=== PATIENT | female | born 1950 | race African-American/Black ===

== ENCOUNTER → 2021-01-15 | Outpatient (CLI) | payer OTHER ==
[~2021-01-15] VITALS: Ht 157.5 cm; Wt 66.2 kg
[~2021-01-15] MED LIST: AMLODIPINE BESY10 MG PO; BYSTOLIC10 MG PO; CEFPODOXIME PR200 M1 PO; CLONAZEPAM 0.50.5 M1 PO; GLUCOPHAGE XR750 MG PO; LEVAQUIN 500 M500 M2 PO; LEXAPRO20 MG PO; LOSARTAN-HCTZ1 EAC3 PO; MOBIC15 MG PO; NORCO 5-325 TA1 EACH PO; NORVASC5 MG PO; PERCOCET 5-3251 EACH PO; PERCOCET PO; POTASSIUM20 PO; PREDNISONE 10 M10 MG PO; PROTONIX40 M1 PO; TRIBENZOR 40-11 EAC1 PO; WELLBUTRIN XL300 MG PO
--- NOTE | 2021-01-15 14:16 | CARDNUC ---
[place] [address] CARDIAC NUCLEAR IMAGING REPORT Name: MARIE DUKES Room: [facility]#: [id number] Admission: 01/15/21 Attend Phys: Scottie Mcmullen, Discharge: Date of : 54 Date of Service: 01/15/21 1416 Report #: [id number] THIS REPORT FOR: cc: Andrei Figueroa Russell J. DO Park,Jorge Luis Fuchs MD ~ APPROVED REPORT Study performed: 01/15/2021 12:08:21 Exam: Nuclear Stress Test Indication: Abnormal EKG, Syncope Patient Location: Out-Patient Stress Tech: danny mittal Stress Nurse: Savannah Pickard RN NM Tech:MARKO Wilde Ht: 5 ft 2 in Wt: 146 lbs BSA: 1.67 m2 BMI: 26.70 Medical History Medical History: CKD, COPD, Diabetes, HTN, Hyperlipidemia Medications: asa-81, atorvastatin, carvedilol , nifedipine, olmesartan Allergies: No known drug allergies Cardiac Risk Factors: DM, Age, HTN, Hyperlipidemia Exercise History: Physically active Meds Held (24 hrs): carvedilol Stress Test Details Stress Test: Exercise stress converted to pharmacologic stress due to failure to obtain a diagnostic stress test. Reason for pharmacologic stress test: changed from exercise stress test due to inability to reach target heart rate. HR Resting HR: 86 bpm Max Heart Rate (APMHR): 152 bpm Max HR Achieved: 103 bpm Target HR (85% APMHR): 129 bpm % of APMHR: 67 Recovery HR: 98 bpm BP Resting BP: 149/67 [place] [address] CARDIAC NUCLEAR IMAGING REPORT Name: ROSELINEMARIE ARTHUR Room: [facility]#: [id number] Admission: 01/15/21 Attend Phys: Scottie Mcmullen, Discharge: Date of : 54 Date of Service: 01/15/21 1416 Report #: [id number] Max BP: 163/64 mmHg ECG Resting ECG: Sinus Rhythm Stress ECG: Sinus Rhythm ST Change: Non-ischemic Clinical Reason for Termination: Completed protocol NM EXAM: Myocardial Perfusion REST/STRESS Imaging Protocol: Rest Tc-99m/Stress Tc-99m 1 day Resting Data Rest SPECT myocardial perfusion imaging was performed in supine position 30 minutes following the intravenous injection of 9.8 mCi of Tc-99m Sestamibi. Time of rest injection: 1040 Date: 01/15/2021 The images were gated to evaluate regional wall motion and calculate left ventricular ejection fraction. Administration Route: IV Pharmacologic Stress Pharmacologic stress test was performed by injecting Regadenoson 0.4 mg IV push followed by the intravenous injection of 35.0 mCi of Tc-99m Sestamibi. Time of stress injection: 1225 Date: 01/15/2021 Administration Route: IV Gated Stress SPECT was performed 40 minutes after stress injection. The images were gated to evaluate regional wall motion and calculate left ventricular ejection fraction. Prone imaging was performed. Study Quality Study: Good Study Data Post stress, the left ventricular ejection was 65%.. SSS: 6 SRS: 5 SDS: 1 TID = 0.95. Perfusion There is a medium area of moderately reduced [place] [address] CARDIAC NUCLEAR IMAGING REPORT Name: ROSELINEMARIE JERSON Room: [facility]#: [id number] Admission: 01/15/21 Attend Phys: Scottie Mcmullen, Discharge: Date of : 54 Date of Service: 01/15/21 1416 Report #: [id number] segment of the inferior wall which is seen on the stress images and improves on the resting images. This area thickens and moves normally and is most consistent with ischemia. Wall Motion Normal left ventricular wall motion. Nuclear Conclusion ECG Findings: negative for ischemia Clinical Findings: non-diagnostic Nuclear Findings: positive for ischemia Exercise Capacity: not assessed Left Ventricular Function: normal There is a reversible basal inferior defect, consistent with ischemia. There is normal global and segmental LV systolic function. <ELECTRONICALLY SIGNED> By: Jorge Luis Swain MD 01/15/211415 15 15 Jorge Luis Swain MD /INF
== END ==
LOC: M.NUC 01-05 16:28 → M.CRD 08:58 → M.NUC 14:00
PROVIDERS: ATTEND Internal Medicine
DX: I25.89 Other forms of chronic ischemic heart disease (principal); I49.3 Ventricular premature depolarization; R55 Syncope and collapse; R94.31 Abnormal electrocardiogram [ECG] [EKG]

== ENCOUNTER → 2021-01-25 | Outpatient (CLI) | payer OTHER ==
[~2021-01-25] MED LIST changes: +ASPIRIN EC81 M1 PO; +BENICAR40 MG PO; +CARVEDILOL12.5 MG PO; +CYMBALTA20 MG PO; +LIPITOR 20 MG T20 M1 PO; +NIFEDIPINE ER60 M1 PO; +PEPCID20 MG PO; +SINGULAIR 10 MG10 M1 PO; +SPIRIVA RESPIMAT4 G1 INH; +SYMBICORT160 MCG/4. INH
--- NOTE | 2021-01-25 14:48 | 2DMMODE ---
[place] [address] 2 D/M-MODE ECHOCARDIOGRAM Name: MARIE DUKES Room: [facility]#: [id number] Admission: 01/25/21 Attend Phys: Scottie Mcmullen, Discharge: Date of : 54 Date of Service: 01/25/21 1448 Report #: [id number] THIS REPORT FOR: cc: Andrei Figueroa Russell J. DO Blick,Jony Nick MD [facility] ~ APPROVED REPORT Study performed: 01/25/2021 13:52:59 EXAM: Comprehensive 2D, Doppler, and color-flow Echocardiogram Patient Location: Out-Patient BSA: 1.65 HR: 75 bpm BP: 150/60 mmHg Other Information Study Quality: Excellent Indications Abnormal ECG Hypertension/HDD 2D Dimensions IVSd: 11.21 (7-11mm) LVOT Diam: 20.52 (18-24mm) LVDd: 41.11 mm PWd: 14.63 (7-11mm) Ascending Ao: 30.33 (22-36mm) LVDs: 26.73 (25-40mm) Aortic Root: 27.25 mm Volumes Left Atrial Volume (Systole) LA ESV Index: 18.60 mL/m2 Aortic Valve AoV Peak Prashant.: 1.65 m/s AO Peak Gr.: 10.89 mmHg LVOT Max P.14 mmHg AO Mean Gr.: 5.82 mmHg LVOT Mean P.56 mmHg LVOT Max V: 0.89 m/s AO V2 VTI: 29.52 cm LVOT Mean V: 0.57 m/s MILLY (VTI): 2.17 cm2 LVOT V1 VTI: 19.38 [place] [address] 2 D/M-MODE ECHOCARDIOGRAM Name: MARIE DUKES [id number] Admission: 01/25/21 Attend Phys: Scottie Mcmullen, Discharge: Date of : 54 Date of Service: 01/25/21 1448 Report #: [id number] E/A Ratio: 0.71 MV Decel. Time: 267.28 ms MV E Max Prashant.: 0.73 m/s MV PHT: 77.51 ms MVA (PHT): 2.84 cm2 TDI E/Lateral E': 9.13 E/Medial E': 10.43 Medial E' Prashant.: 0.07 m/s Lateral E' Prashant.: 0.08 m/s Pulmonary Valve PV Peak Prashant.: 0.92 m/s PV Peak Gr.: 3.36 mmHg Tricuspid Valve RAP Estimate: 5.00 mmHg TR Peak Gr.: 22.49 mmHg RVSP: 27.49 mmHg PA Pressure: 27.49 mmHg Left Ventricle The left ventricle is normal size. There is normal LV segmental wall motion. Moderate concentric left ventricular hypertrophy. Left ventricular systolic function is normal. The left ventricular ejection fraction is within the normal range. LVEF is 50-55%. Grade I - abnormal relaxation pattern. Right Ventricle The right ventricle is normal size. The right ventricular systolic function is normal. Atria The left atrium size is normal. The right atrium size is normal. Aortic Valve Aortic valve is mildly calcified. No aortic regurgitation is present. There is no aortic valvular stenosis. Mitral Valve The mitral valve is normal in structure. There is trace mitral valve regurgitation noted. No evidence of mitral valve stenosis. Tricuspid Valve The tricuspid valve is normal in structure. Mild [place]icus[place] [address] 2 D/M-MODE ECHOCARDIOGRAM Name: ROSELINEMARIE JERSON Room: [facility]#: [id number] Admission: 01/25/21 Attend Phys: Scottie Mcmullen, Discharge: Date of : 54 Date of Service: 01/25/21 1448 Report #: [id number] Pulmonic Valve The pulmonary valve is normal in structure. trace pulmonic regurgitation. Great Vessels The aortic root is normal in size. IVC is normal in size and collapses >50% with inspiration. Pericardium There is no pericardial effusion. <Conclusion> LVEF is 50-55%. Moderate concentric left ventricular hypertrophy. <ELECTRONICALLY SIGNED> By: Jony Hayden MD, FACC 01/25/21 1448 1448 1448 Jony Hayden MD, FACC /INF
== END ==
LOC: M.CRD 13:35
PROVIDERS: ATTEND Internal Medicine
DX: I07.1 Rheumatic tricuspid insufficiency (principal); R94.31 Abnormal electrocardiogram [ECG] [EKG]; I10 Essential (primary) hypertension; I49.3 Ventricular premature depolarization; R55 Syncope and collapse

== ENCOUNTER → 2021-01-27 | Outpatient (CLI) | payer OTHER ==
[~2021-01-27] VITALS: Ht 154.9 cm; Wt 65.8 kg
[2021-01-27] VITALS (8 sets, daily range): BP systolic 124–1144; BP diastolic 56–80
[2021-01-27 08:18] LABS: HEMOGLOBIN 11.2 gm/dL (12.0-15.0); MCHC 33.9 g/dL (28.0-37.0); MCV 91.5 fL (80.0-100.0); MPV 7.1 fl. (7.2-11.1); RBC 3.61 mil/uL (4.20-5.00); RDW-CV 13.7 % (10.5-14.5); WBC 6.5 thou/uL (4.0-11.0)
[2021-01-27 08:27] LABS: APTT 24.3 Seconds (25.0-31.3); INR 1.1
[2021-01-27 08:29] LABS: ANION GAP 10 mmol/L (7-16); BUN 24 mg/dL (7-18); CALCIUM 9.8 mg/dL (8.5-10.1); CHLORIDE 103 mmol/L (98-107); CO2 30 mmol/L (21-32); CREATININE 1.8 mg/dL (0.6-1.3); GLUCOSE 106 mg/dL (70-99); SODIUM 143 mmol/L (136-145)
[2021-01-27 08:33] LABS: ALBUMIN 3.8 g/dL (3.4-5.0); ALKALINE PHOSPHATASE 100 U/L (46-116); CHOLESTEROL 147 mg/dL (<200); HDL CHOLESTEROL 87 mg/dL (>40); LDL CHOLESTEROL 47 mg/dL (<100); SGOT 13 U/L (15-37); SGPT 19 U/L (30-65); TC:HDL 1.7 Ratio (Not establshd); TOTAL BILIRUBIN 0.6 mg/dL (<0.1-1.0); TOTAL PROTEIN 7.1 g/dL (6.4-8.2); TRIGLYCERIDE 66 mg/dL (<150); VLDL 13 mg/dL (<40)
[2021-01-27 08:57] LABS: SERUM ASSESSMENT Clear
--- NOTE | 2021-01-27 09:59 | EKG ---
[place] [address] ELECTROCARDIOGRAM REPORT Name: DUKESMARIE Room: [facility]#: [id number] Admission: 01/27/21 Attend Phys: Scottie Mcmullen, Discharge: Date of : 54 Date of Service: 01/27/21812 Report #: [id number] THIS REPORT FOR: //name// [facility] Test Date: 2021-01-27 Test Time: 08:13:04 Pat Name: MARIE DUKES Department: Room: Gender: Welding Machine Setter: OLGA : 1950 Requested By: Jony Hayden Order Number: [id number] Reading MD: Jony Hayden Measurements Intervals [place] Rate: 73 P: 69 AR: 156 QRS: 15 QRSD: 92 T: 29 QT: 419 QTc: 462 Interpretive Statements Sinus rhythm Atrial premature complex Consider left ventricular hypertrophy Compared to ECG 10/02/2014 02:31:38 Atrial premature complex(es) now present ST (T wave) deviation no longer present Electronically Signed On 01-27-2021 9:59:47 CDT by Jony Hayden [email or web address] <ELECTRONICALLY SIGNED> By: Jony Hayden MD, FACC 01/27/21 0959 2 2 Jony Hayden MD, [facility] /EPI
--- NOTE | 2021-01-27 14:11 | CARD ---
[address] [address] CARDIAC CATH REPORT Name: MARIE DUKES Room: [facility].#: [id number] Admission: 01/27/21 Attend Phys: Scottie Mcmullen MD, Discharge: Date of : 54 Report #: [id number] THIS REPORT FOR: cc: Andrei Figueroa Russell J. DO Blick,Jony Nick MD [facility] ~ APPROVED REPORT Study performed: 01/27/2021 08:37:27 Patient Details Patient Status: Out-Patient Room #: The patient is a 70 year-old female Event Personnel Dr Hayden, Jose Galaviz AIR FILLER, Zofia Stokes RN, Dionna Clark RTR Procedures Performed Left heart cath with LV gram, IFR proximal RCA Indication Palpitations, Dyspnea, Positive stress test Risk Factors Hypercholesterolemia, Hypertension, Diabetes Admission/Lab Medications/Medications given during procedure Heparin Unfract. Procedure Narrative The patient was brought electively to the Cardiac Catheterization Laboratory and was prepped and draped in a sterile manner. The right wrist was infiltrated with 2% Lidocaine subcutaneous anesthesia. IV conscious sedation was used throughout procedure with appropriate monitoring and was performed in the presence of a registered nurse who was an independent trained observer other than the physician performing the procedure. A 6Fr [place] sheath slender sheath was inserted into the right radial artery. Coronary angiography was performed using coronary diagnostic catheters. The right coronary system was accessed and visualized with a Diagnostic 6Fr JR 4 catheter. The left coronary system was accessed and visualized with a Diagnostic 6Fr JL 4 catheter. The [place] [address] CARDIAC CATH REPORT Name: MARIE DUKES [id number] Admission: 01/27/21 Attend Phys: Scottie Mcmullen MD, Discharge: Date of : 54 Report #: [id number] visualized with a Diagnostic 6Fr Pigtail catheter. Left ventricular/Aortic Valve gradient assessed via catheter pullback. Left ventriculogram was performed in DUMAS projection. Closure device was deployed with a 6 Fr TR Band. The patient tolerated the procedure well and there were no complications associated with the procedure. There was no hematoma. Intraoperative Conscious Sedation Sedation start time: 915 Case end Time: 945 Fentanyl 25.0 mcg Versed 2.0 mg Fluoro Time: 3.7 minutes Dose: DAP 26271 cGycm2 543 mGy Contrast Type and Amount: Visipaque 130 ml Coronary Angiography The patient's coronary anatomy is right dominant. Diagnostic Cath Left Main 0% stenosis LAD 0% stenosis Circumflex 0% stenosis OM2 mdeium sized vessel with 30% mid stenosis Right Coronary 50% mid stenosis Left Ventriculography The left ventricle is normal in size with normal contractility. The left ventricular ejection fraction is estimated to be 60-65%. Left ventricular wall motion abnormalities are not present. There is 1+ mitral insufficiency. Hemodynamics The aortic pressure is 147/71 mmHg with a mean of 101 mmHg. The left ventricular pressure is 141/5 mmHg with a mean of 8 mmHg. The left ventricular end diastolic pressure is 8 mmHg. There was no gradient across the aortic valve upon pullback. Pullback from the left ventricle to the aorta revealed no gradient across the aortic valve. PCI Technique Lesion Anticoagulation was achieved with Heparin. The lesion stenosis prior to intervention was 50% with EMELY 3 flow. A 6Fr JR4 Guide Catheter was used to engage the Right ostium. A OMNI wire Interventional Guidewire was [place] [address] CARDIAC CATH REPORT Name: MARIE DUKES Room: [facility]#: [id number] Admission: 01/27/21 Attend Phys: Scottie Mcmullen MD, Discharge: Date of : 54 Report #: [id number] BALLOON DILATION The patient was pre treated with 200 mcg IC NTG. COMMENTS Proximal RCA was evaluated by IFR with results of 0.99. Conclusion 1. 50% stenosis of the mid RCA 2. LVEF 60-65% 3. IFR of the mid RCA was 0.99 consistent with no hemodynamic obstruction, therefore intervention was deferred. Recommendations Aggressive Medical Therapy <ELECTRONICALLY SIGNED> By: Jony Hayden MD, [facility] [id number] Hayden MD, [facility] /INF
== END | disposition home or self-care (01) ==
LOC: M.CL 07:11
PROVIDERS: Internal Medicine Cardiovascular Disease; ATTEND Internal Medicine
DX: R94.39 Abnormal result of other cardiovascular function study (principal); I25.10 Atherosclerotic heart disease of native coronary artery without angina pectoris; R00.2 Palpitations; R06.00 Dyspnea, unspecified; I10 Essential (primary) hypertension; E11.9 Type 2 diabetes mellitus without complications; F32.9 Major depressive disorder, single episode, unspecified; J45.909 Unspecified asthma, uncomplicated; Z98.890 Other specified postprocedural states; Z79.82 Long term (current) use of aspirin; Z79.899 Other long term (current) drug therapy; Z20.822 Contact with and (suspected) exposure to COVID-19; Z79.01 Long term (current) use of anticoagulants; Z88.8 Allergy status to other drugs, medicaments and biological substances